=== PATIENT | female | born 1940 | race Caucasian/White ===

== ENCOUNTER 2017-11-09 17:56 | Observation (INO) | payer OTHER ==
[~2017-11-09] VITALS: Ht 170.2 cm; Wt 101.4 kg
[2017-11-09 19:05] LABS: HEMATOCRIT 37.3 % (36.0-46.0); MCHC 33.5 G/DL (30.0-36.0); MCV 86.5 FL (83-99); PLATELET COUNT 244 K/uL (156-360); RBC DIS.WIDTH-CV 17.6 % (11.8-14.6); RBC DIS.WIDTH-SD 55.8 % (39-53); RED BLOOD COUNT 4.31 M/uL (3.80-5.20); WHITE BLOOD COUNT 11.3 K/uL (4.1-10.2)
[2017-11-09 19:26] LABS: CHLORIDE 101 mEq/L (99-109); POTASSIUM 3.9 mEq/L (3.7-5.4); SODIUM 135 mEq/L (136-147)
[2017-11-09 19:28] LABS: GLUCOSE 183 mg/dL (70-99)
[2017-11-09 19:29] LABS: ANION GAP 9 MEQ/L (2-14)
[2017-11-09 19:30] LABS: TOTAL BILIRUBIN 0.5 mg/dL (0.0-1.0)
[2017-11-09 19:31] LABS: ALKALINE PHOSPHATASE 32 IU/L (3-129); GFR ESTIMATE (CALCULATED) > 59 mL/min/
[2017-11-09 19:33] LABS: UREA NITROGEN (BUN) 16 mg/dL (9-23)
[2017-11-09 20:57] LABS: TROP-I INTERPRETATION NEGATIVE; TROPONIN-I 0.02 ng/mL (0.0-0.30)
[2017-11-09] MEDS ORDERED: GABAPENTIN100 MG PO (22:01)
[2017-11-09] MEDS ORDERED: PRAVACHOL40 MG PO (22:01)
[2017-11-09] MEDS ORDERED: LEVOXYL150 MCG PO (22:01)
[2017-11-09] MEDS ORDERED: COZAAR100 MG PO (22:02)
[2017-11-09] MEDS ORDERED: GLUCOPHAGE1000 MG PO (22:02)
[2017-11-09] MEDS ORDERED: COREG25 M1 PO (22:02)
[2017-11-09] MEDS ORDERED: PRILOSEC20 MG PO (22:02)
[2017-11-09] MEDS ORDERED: FLONASE16 G1 BOTH NARES (22:03)
[2017-11-09] MEDS ORDERED: NORVASC5 MG PO (22:03)
[2017-11-09] MEDS ORDERED: NOVOLOG MI100 UNIT/2 SC (22:04)
[2017-11-09] MEDS ORDERED: LEVEMIR FL100 UNIT/1 SC (22:05)
[2017-11-09] MEDS ORDERED: MAGOX 400400 MG PO (22:05)
[2017-11-09] MEDS ORDERED: VITAMIN D31000 UNI2 PO (22:06)
[2017-11-09] MEDS ORDERED: VITAMIN C1000 MG PO (22:06)
[2017-11-09] MEDS ORDERED: PAIN RELIEF EX500 MG PO (22:06)
[2017-11-09] MEDS ORDERED: NITROSTAT0.4 MG SL (22:06)
[2017-11-09] MEDS ORDERED: ASPIR 8181 M1 PO (22:07)
[2017-11-09 22:51] VITALS: BP 175/67
[2017-11-09 23:30] VITALS: BP 142/58
[2017-11-10 03:46] VITALS: BP 169/67
[2017-11-10 09:57] VITALS: BP 173/74
[2017-11-10 10:29] LABS: POINT-OF-CARE METER ID UU13113831
[2017-11-10 11:59] VITALS: BP 162/77
[2017-11-10 12:43] LABS: POINT-OF-CARE METER ID UU14162513
[2017-11-10] MEDS ORDERED: PANTOPRAZOLE SO40 MG PO (14:17)
[2017-11-10 14:59] LABS: Estimated Average Glucose 183 mg/dL (70-123)
== END 2017-11-10 14:45 | disposition home or self-care (01) ==
LOC: EME 17:56 → EDOF 21:25 → 5WEST 21:25 → EDOF 21:25 → ENRESERV 21:35 → 5WEST 22:44
PROVIDERS: Hospitalist; Physician Assistant; Physician Assistant Medical
DX: R11.2 Nausea with vomiting, unspecified (principal); R51 Headache; R63.4 Abnormal weight loss; I25.10 Atherosclerotic heart disease of native coronary artery without angina pectoris; I25.2 Old myocardial infarction; Z95.5 Presence of coronary angioplasty implant and graft; E11.9 Type 2 diabetes mellitus without complications; Z95.1 Presence of aortocoronary bypass graft; Z79.4 Long term (current) use of insulin; E66.9 Obesity, unspecified; Z68.35 Body mass index [BMI] 35.0-35.9, adult; R42 Dizziness and giddiness; R91.1 Solitary pulmonary nodule; K44.9 Diaphragmatic hernia without obstruction or gangrene; I67.1 Cerebral aneurysm, nonruptured; I65.21 Occlusion and stenosis of right carotid artery; J32.9 Chronic sinusitis, unspecified; E87.1 Hypo-osmolality and hyponatremia; E78.5 Hyperlipidemia, unspecified; E03.9 Hypothyroidism, unspecified; T46.5X6A Underdosing of other antihypertensive drugs, initial encounter; T38.1X6A Underdosing of thyroid hormones and substitutes, initial encounter; Z91.128 Patient's intentional underdosing of medication regimen for other reason; I10 Essential (primary) hypertension; Z87.891 Personal history of nicotine dependence; Z79.82 Long term (current) use of aspirin; Z60.2 Problems related to living alone; Z90.49 Acquired absence of other specified parts of digestive tract; Z88.0 Allergy status to penicillin; Z88.8 Allergy status to other drugs, medicaments and biological substances
CPT/HCPCS: 71020; 74177; 80053; 81003; 82948; 83036; 84484; 85027; 93005; 99281; 99285; C9113; G0378; J1644; J1815; J2405; J7030